=== PATIENT | female | born 1980 | race Caucasian/White ===

== ENCOUNTER 2019-07-10 09:50 | Emergency (ER) | payer MEDICAID ==
[~2019-07-10] VITALS: Ht 162.6 cm; Wt 67.2 kg
[2019-07-10 09:54] VITALS: BP 127/70
--- NOTE | 2019-07-10 10:10 | NUR ---
PT PRESENTS TO ED WITH C/O VAGINAL BLEEDING X2 DAYS. PT REPORTS BROWN SPOTTING YESTERDAY AND LARGE AMOUNT OF BRIGHT RED BLEEDING TODAY; REPORTS 3 PADS PER HOUR TODAY. CRAMPING PAIN TO LOWER ABD THAT RADIATES TO LOWER BACK AND DOWN BOTH LEGS. PT REPORTS POSITIVE TEST APPROX 6 WEEKS AGO, BUT PT HASNT FOLLOW UP WITH [facility]. LMP 05/26/19. VSS. THALIAD TO EVALUATE PT.
[2019-07-10 11:57] LABS: BASOPHILS % (AUTO) 0.3 % (0.0-2.0); EOSINOPHILS # (AUTO) 0.1 K/uL (0-0.4); EOSINOPHILS % (AUTO) 1.2 % (0.0-4.0); HEMOGLOBIN 12.7 g/dL (12.0-16.0); MEAN CORPUSCULAR HEMOGLOBIN 31 pg (27-31); MEAN CORPUSCULAR HGB CONC 34 g/dL (33-37); MEAN CORPUSCULAR VOLUME 90.6 fL (80-94); MONOCYTES # (AUTO) 0.5 K/uL (0.8-1.0); NEUTROPHILS # (AUTO) 5.4 K/uL (1.8-7.7); NEUTROPHILS % (AUTO) 67.5 % (42.2-75.2); PLATELET COUNT (AUTO) 192 K/uL (140-450); RED BLOOD CELL COUNT(AUTO) 4.09 MIL/uL (4.20-5.40); RED CELL DISTRIBUTION WIDTH 12.9 % (11.6-13.7)
[2019-07-10 11:59] LABS: APPEARANCE,URINE CLOUDY (CLEAR); BILIRUBIN,URINE 1+ (NEGATIVE); BLOOD, URINE 3+ (NEGATIVE); COLOR,URINE YELLOW (YELLOW); LEUKOCYTE ESTERASE ,URINE NEGATIVE (NEGATIVE); NITRITE, URINE NEGATIVE (NEGATIVE); UGLUCOSE NEGATIVE (NEGATIVE)
[2019-07-10 12:13] LABS: PROTHROMBIN TIME 9.8 secs (10.8-13.4)
[2019-07-10 12:47] LABS: RBC,URINE 20-50 /HPF (0-5); WBC,URINE 0-5 /HPF (0-5)
[2019-07-10 12:48] LABS: URINE AMORPHOUS URATE 3+ /HPF (None Seen)
[2019-07-10] MEDS ORDERED: KETOROLAC 30 MG/ML VIAL IVP ONE (13:20)
[2019-07-10] MEDS ORDERED: KETOROLAC 60 MG/2 ML VIAL IM ONE (13:30)
--- NOTE | 2019-07-10 14:00 | NUR ---
Patient appears to be resting comfortably in bed. Vital Signs within normal limits. Respirations even and unlabored.
--- NOTE | 2019-07-10 15:00 | NUR ---
CONSENT SINGNED;[facility] INJ ADMINISTERED ORDERED. NO ADVERSE SIDE EFFECTS OBSERVED OR VOICED AT THIS TIME.
--- NOTE | 2019-07-10 15:01 | NUR ---
[facility] IM LOT NUMBER: [id number] EXPIRATION DATE: 03/03/21 PATIENT BLOOD GROUP/RH TYPE: B NEG
[2019-07-10 15:17] VITALS: BP 112/74
--- NOTE | 2019-07-10 15:17 | NUR ---
DPatient discharged with v/s stable. Written and verbal after care instructions given and explained. Patient verbalized understanding. Ambulatory with steady gait. All questions addressed prior to discharge. Advised to follow up with PMD.
== END 2019-07-10 15:17 | disposition home or self-care (01) ==
LOC: MED 09:50
DX: O20.9 Hemorrhage in early pregnancy, unspecified (principal); Z3A.01 Less than 8 weeks gestation of pregnancy
CPT/HCPCS: 36415; 76830; 81001; 81025; 84702; 85025; 85610; 85730; 86886; 86900; 86901; 96372; 99284; J1885; J2790; Q0092